=== PATIENT | male | born 1955 | race Caucasian/White ===

== ENCOUNTER → 2016-06-11 | Day surgery (SDC) | payer OTHER ==
--- NOTE | 2016-05-17 11:11 | HP ---
PREOPERATIVE HISTORY AND PHYSICAL: DATE OF SURGERY/ADMISSION: 06/11/16 PROCEDURE: Right index, middle and ring finger trigger finger releases. CHIEF COMPLAINT: Right index, middle and ring finger triggering. 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 He has had trouble with the middle finger for 3 years. He has not attempted any treatment at this time for this problem. He was offered a cortisone injection about 3 years ago, but declined. Now he is having pain in the other fingers and is interested in having something done about it. The middle finger locks regularly , but it is not terribly painful. He denies any numbness or tingling. After discussion and with evaluation by Dr. Oshea, the patient has agreed to proceed with surgical intervention at this time in the form of a right index finger, middle and ring finger trigger finger release. PAST MEDICAL HISTORY: 1. Hypercholesterolemia. 2. Hypertension. 3. GERD. 4. Anxiety. PAST SURGICAL HISTORY: 1. Vasectomy. 2. Oral surgery. CURRENT MEDICATIONS: 1. Aspirin 81 mg daily. 2. Atorvastatin calcium 20 mg daily. 3. Cetirizine HCL 10 mg daily. 4. Diphenhydramine/APAP 25/500 mg daily p.r.n. sleep. 5. Metoprolol tartrate 25 mg one-half tab p.r.n. episode of tachycardia. 6. Nasacort 55 mcg 1 spray each nostril q.h.s. p.r.n. 7. Omeprazole 10 mg daily. 8. Toprol-XL 25 mg daily. 9. Xanax 0.25 mg 1 tab up to 3 times a day p.r.n. anxiety. 10. Zyrtec 1 tab daily. ALLERGIES: CIPROFLOXACIN causes hives. FAMILY MEDICAL HISTORY: Noncontributory. 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 He smoke cigars 1 to 2 per year. He denies illicit drug use. He does admit to alcohol use on regular occasion usually daily. REVIEW OF SYSTEMS: General: Negative for fevers, chills, or night sweats. No known anesthesia problems. HEENT: Negative headache, lightheadedness or syncopal episodes. Integumentary: Negative for abrasions, lesions or open wounds. Cardiothoracic: Positive for hypertension. Negative for chest pain, palpitations or edema. Pulmonary: Negative for shortness of breath with exertion, chronic cough, or COPD. GI: Positive for GERD. Negative for nausea , vomiting, diarrhea, or constipation. : Positive for history of kidney stones. Negative for nocturia, urinary frequency, urgency, history of UTIs. Musculoskeletal: Positive for current complaint. Negative for chronic or intermittent back pain or history of fractures. Neurological: Positive for anxiety. Negative for paresthesias, numbness, history of seizure, stroke or epilepsy. Endocrine: Negative for diabetes or thyroid issues. Hematologic: Negative for easy bruising, anemia, excessive bleeding, or history of DVT. Infectious Disease: Negative for history of MRSA, hepatitis C, HIV. PHYSICAL EXAMINATION GENERAL: Well-developed, well-nourished 60-year-old male in no acute distress. VITAL SIGNS: Height 5 feet 6 inches, weight 233 pounds. Blood pressure 143/82 , pulse rate 67. HEENT: Normocephalic, atraumatic. Pupils are equal, round and reactive to light and accommodation. Extraocular movements are intact. NECK: Supple. No palpable lymph nodes. Throat is clear. PULMONARY: Lungs are clear to auscultation bilaterally. No wheezes, rales, or rhonchi. CARDIOTHORACIC: Regular rate and rhythm. S1, S2. No murmurs, rubs or gallops. No edema. ABDOMEN: Positive bowel sounds, soft, nontender. NEUROLOGICAL: Alert and oriented x3. Cranial nerves II through XII are intact. MUSCULOSKELETAL: On exam of his right hand, he has tenderness to palpation at the A1 luis of the middle, ring, and index fingers. There is triggering and locking in flexion of the middle finger. No locking of the other fingers. Neurovascular function is intact. He lacks full extension of his middle finger , but otherwise has normal range of motion. IMPRESSION: Trigger fingers of the right index, middle, and ring finger. PLAN: The patient is scheduled to undergo right index, middle, and ring finger trigger finger releases with Dr. Oshea on 06/11/16. He will return to the office 10 to 14 days postop for followup and suture removal. A prescription for tramadol was e-scribed to the patient's pharmacy for postoperative pain management. OKSANA PETERS [id number]/[facility] #: [id number] KAREN
[~2016-06-11] MED LIST: Buffered Lidocaine 1% SYR 3ML* 3 ML/SYR SYRINGE INTRADERM ONE; Buffered Lidocaine 1% SYR 3ML* 3 ML/SYR SYRINGE ONE; Labetalol IV* 5 MG/ML 20 ML VIAL ONE; Lidocaine 1% INJ* 10 MG/ML 30 ML SDV ONE; Midazolam* 1 MG/ML 2 ML VIAL (2 MG) ONE; fentaNYL* 50 MCG/ML 2 ML VIAL (100 MCG VIAL) ONE
[2016-06-11 08:33] VITALS: BP 117/77
--- NOTE | 2016-06-12 00:07 | OP ---
DATE OF OPERATION: 06/11/16 [facility] DATE OF : 53 SURGEON: Ana Oshea MD CHANGE AGENT: OKSANA Thomposn ANESTHESIOLOGIST: Keon Levine DO ANESTHESIA: Local MAC. PRE-OP DIAGNOSIS: Trigger fingers of the right index, long, and ring fingers. POST-OP DIAGNOSIS: Trigger fingers of the right index, long, and ring fingers. OPERATIVE PROCEDURE: Trigger finger release of his right index, middle, and long finger. ESTIMATED BLOOD LOSS: Zero. TOURNIQUET TIME: About 15 minutes. INDICATION OF PROCEDURE: Aden is a 60-year-old man with triggering and locking of his right index, long, and ring fingers. He presents for trigger finger release after failing conservative treatment. DESCRIPTION OF PROCEDURE: The patient was brought to the operating room, was given a sedation anesthetic and a local infiltration of a total of 12 cc of 1% plain lidocaine in the palm of his right hand. Skin of his right hand and forearm was prepped and draped in the usual sterile fashion. The hand and forearm were exsanguinated and the tourniquet elevated to 250 mmHg. A transverse incision was made, centered over the A1 pulleys of the index, middle , and long fingers of the right hand. We dissected bluntly subcutaneous tissue down to each A1 luis and each luis was incised longitudinally completely releasing the flexor tendons which have some mild tenosynovitis, but were otherwise in very good condition. The wound was irrigated and the skin edges reapproximated with 4-0 nylon suture. The wound was dressed with Xeroform, 4x4 , Webril, and an Nikita wrap. The patient tolerated the procedure well and was brought to the recovery room in good condition. [id number]/[facility] #: [id number] MTDD
== END | disposition home or self-care (01) ==
LOC: OREAST 06:35
PROVIDERS: ATTEND Orthopaedic Surgery
DX: M65.321 Trigger finger, right index finger (principal); M65.331 Trigger finger, right middle finger; M65.341 Trigger finger, right ring finger; E78.00 Pure hypercholesterolemia, unspecified; I10 Essential (primary) hypertension; K21.9 Gastro-esophageal reflux disease without esophagitis; F41.9 Anxiety disorder, unspecified; Z79.82 Long term (current) use of aspirin
CPT/HCPCS: J2250; J3010

== ENCOUNTER 2017-06-16 17:32 | Emergency (ER) | payer OTHER ==
[2017-06-16] MEDS ORDERED: NS 0.9% 1000 ML* 1,000 ML IV ONE (18:39)
[2017-06-16 19:11] LABS: ABS Basophils 0.1 10^3/ul (0-0.2); ABS Eosinophils 0.2 10^3/ul (0-0.6); ABS Lymphocytes 1.4 10^3/ul (1.0-4.8); ABS Monocytes 0.6 10^3/ul (0-0.8); ABS Neutrophils 3.6 10^3/ul (1.5-7.7); ABS Nucleated RBC 0 10^3/ul; Eosinophil % 2.9 % (0-6); Hematocrit 42 % (42-52); Hemoglobin 14.3 g/dl (14.0-18.0); Lymphocyte % 23.8 % (25-47); Mean Corpuscular HGB Conc 34 g/dl (31-36); Mean Corpuscular Hemoglobin 32 pg (27-31); Mean Corpuscular Volume 94 fL (80-94); Mean Platelet Volume 8 um3 (7.4-10.4); Nucleated Red Blood Cells % 0; Platelet Count 193 10^3/ul (150-450); Red Blood Count 4.46 10^6/ul (4.0-5.4); Red Cell Distribution Width 14 % (10.5-15); White Blood Count 5.7 10^3/ul (3.5-10.8)
[2017-06-16 19:16] LABS: INR 0.94 (0.77-1.02)
[2017-06-16 19:25] LABS: EGFR Non-African American 80.3 (>60)
[2017-06-16] MEDS ORDERED: Metoprolol Tartrate TAB* 25 MG PO ONE (20:45)
[2017-06-16 20:47] VITALS: BP 132/73
--- NOTE | 2017-06-16 21:23 | ED ---
Alireza London Julia, scribed for Roberto Murphy MD on 06/16/17 at 1806 . Palpitations / Dysrhythmia - HPI Summary HPI Summary: This patient is a 61 year old M BIBA to [facility] with a chief complaint of intermittent bouts of tachycardia since 15:30. The patient rates the pain 0/ 10 in severity. Symptoms aggravated by alcohol and dehydration. Symptoms alleviated by slow controlled breathing. Patient reports, cold hands and feet during bouts, being a little tired, dehydrated, and diarrhea. Patient denies fever. Patient states pedal swelling is normal for him. Patient was given 324mg of ASA in ambulance. Patient has been taking Augmentin recently. Patient has history of HTN, GERN and atrial tachycardia (past 30 years). - History of Current Complaint Chief Complaint: EDDysrhythmPalp Time Seen by Provider: 06/16/17 17:57 Hx Obtained From: Patient Onset/Duration: Sudden Onset Timing: Intermittent Episodes Lasting: Aggravating: Other - alcohol, dehydration Alleviating: Other - slow breathing - Allergy/Home Medications Allergies/Adverse Reactions: Allergies Allergy/AdvReac Type Severity Reaction Status Date / Time Levofloxacin Allergy Rash Verified 06/11/16 06:53 PMH/Surg Hx/FS Hx/Imm Hx Endocrine/Hematology History: Denies: Hx Diabetes Cardiovascular History: Reports: Hx Hypercholesterolemia, Hx Hypertension - ON DAILY MEDS Comment Only: Other Cardiovascular Problems/Disorders - ATRIAL TACHYCARDIA Respiratory History: Reports: Hx Pneumonia, Hx Seasonal Allergies Denies: Hx Sleep Apnea Comment Only: Other Respiratory Problems/Disorders - HX PNEUMONIA X 7 YRS AGO GI History: Reports: Hx Gastroesophageal Reflux Disease - ON DAILY MEDS, Hx Irritable Bowel - Hx OF, OCCASSIONAL Sx, Other GI Disorders - umbilical hernia SURGERY 2009 History: Reports: Hx Kidney Stones - Hx OF, 2 PASTED ON OWN, STATES BY XRAY HAS ONE IN RIGT KIDNEY, NO PROBLEMS Denies: Hx Renal Disease Musculoskeletal History: Reports: Hx Arthritis, Hx Back Problems, Hx Gout Sensory History: Reports: Hx Contacts or Glasses - GLASSES Opthamlomology History: Reports: Hx Contacts or Glasses - GLASSES Psychiatric History: Denies: Hx Anxiety - Surgical History Surgery Procedure, Year, and Place: [place] [facility] [place] [facility] [place] [facility] [place]x Anesthesia Reactions: No - Immunization History Date of Influenza Vaccine: 04/2017 Immunizations Up to Date: Yes Infectious Disease History: No Infectious Disease History: Denies: Traveled Outside the [place] in Last 30 Days - Family History Known Family History: Positive: Cardiac Disease - CAD - paternal - Social History Alcohol Use: Daily Alcohol Amount: 2 drinks Hx Substance Use: No Substance Use Type: Reports: None Hx Tobacco Use: Yes Smoking Status (MU): Current Some Day Smoker Have You Smoked in the Last Year: No Review of Systems Positive: Fatigue, Other - dehydrated Positive: Palpitations Positive: Diarrhea Positive: Other - cold extremities All Other Systems Reviewed And Are Negative: Yes Physical Exam - Summary Physical Exam Summary: Appearance: The patient is well-nourished in no acute distress and in no acute pain. Patient appears red in color, Skin: The skin is warm and dry and skin color reflects adequate perfusion. HEENT: The head is normocephalic and atraumatic. The pupils are equal and reactive. The conjunctivae are clear and without drainage. Nares are patent and without drainage. Mouth reveals moist mucous membranes and the throat is without erythema and exudate. The external ears are intact. The ear canals are patent and without drainage. The tympanic membranes are intact. Neck: the neck is supple with full range of motion and non-tender. There are no carotid bruits. There is no neck vein distension. Respiratory: Chest is non-tender. Lungs are clear to auscultation and breath sounds are symmetrical and equal. Cardiovascular: Heart is regular rate and rhythm. There is no murmur or rub auscultated. There is no peripheral edema and pulses are symmetrical and equal. Abdomen: The abdomen is soft and non-tender. There are normal bowel sounds heard in all four quadrants and there is no organomegaly palpated. Musculoskeletal: There is no back tenderness noted. Extremities are non-tender with full range of motion. There is good capillary refill. There is pitting edema bilaterally no calf tenderness elicited. Neurological: Patient is alert and oriented to person, place and time. The patient has symmetrical motor strength in all four extremities. Cranial nerves are grossly intact. Deep tendon reflexes are symmetrical and equal in all four extremities. Psychiatric: The patient has an appropriate affect and does not exhibit any anxiety or depression. Triage Information Reviewed: Yes Vital Signs On Initial Exam: Initial Vitals Temp Pulse Resp BP Pulse Ox 99.2 F 97 17 141/78 91 06/16/17 17:39 06/16/17 17:39 06/16/17 17:39 06/16/17 17:39 06/16/17 17:39 Vital Signs Reviewed: Yes - Bradly Coma Scale Coma Scale Total: 15 Diagnostics - Vital Signs Vital Signs Temp Pulse Resp BP Pulse Ox 06/16/17 17:39 99.2 F 97 17 141/78 91 - Laboratory Lab Results: Lab Results 06/16/17 06/16/17 06/16/17 Range/Units 19:00 19:00 19:00 WBC 5.7 (3.5-10.8) 10^3/ul RBC 4.46 (4.0-5.4) 10^6/ul Hgb 14.3 (14.0-18.0) g/dl Hct 42 (42-52) % MCV 94 (80-94) fL MCH 32 H (27-31) pg MCHC 34 (31-36) g/dl RDW 14 (10.5-15) % Plt Count 193 (150-450) 10^3/ul MPV 8 (7.4-10.4) um3 Neut % (Auto) 62.6 (38-83) % Lymph % (Auto) 23.8 L (25-47) % Gaston % (Auto) 9.7 H (1-9) % Eos % (Auto) 2.9 (0-6) % Baso % (Auto) 1.0 (0-2) % Absolute Neuts (auto) 3.6 (1.5-7.7) 10^3/ul Absolute Lymphs (auto) 1.4 (1.0-4.8) 10^3/ul Absolute Monos (auto) 0.6 (0-0.8) 10^3/ul Absolute Eos (auto) 0.2 (0-0.6) 10^3/ul Absolute Basos (auto) 0.1 (0-0.2) 10^3/ul Absolute Nucleated RBC 0 10^3/ul Nucleated RBC % 0 INR (Anticoag Therapy) 0.94 (0.77-1.02) Sodium 136 (133-145) mmol/L Potassium 4.7 (3.5-5.0) mmol/L Chloride 104 (101-111) mmol/L Carbon Dioxide 26 (22-32) mmol/L Anion Gap 6 (2-11) mmol/L BUN 20 (6-24) mg/dL Creatinine 0.95 (0.67-1.17) mg/dL Est GFR ( Amer) 103.3 (>60) Est GFR (Non-Af Amer) 80.3 (>60) BUN/Creatinine Ratio 21.1 H (8-20) Glucose 133 H (70-100) mg/dL Lactic Acid (0.5-2.0) mmol/L Calcium 9.1 (8.6-10.3) mg/dL Magnesium 2.0 (1.9-2.7) mg/dL Total Bilirubin 0.40 (0.2-1.0) mg/dL AST 27 (13-39) U/L ALT 35 (7-52) U/L Alkaline Phosphatase 66 (34-104) U/L Troponin I 0.01 (<0.04) ng/mL Total Protein 7.2 (6.4-8.9) g/dL Albumin 4.1 (3.2-5.2) g/dL Globulin 3.1 (2-4) g/dL Albumin/Globulin Ratio 1.3 (1-3) TSH 0.96 (0.34-5.60) mcIU/mL 06/16/17 Range/Units 19:00 WBC (3.5-10.8) 10^3/ul RBC (4.0-5.4) 10^6/ul Hgb (14.0-18.0) g/dl Hct (42-52) % MCV (80-94) fL MCH (27-31) pg MCHC (31-36) g/dl RDW (10.5-15) % Plt Count (150-450) 10^3/ul MPV (7.4-10.4) um3 Neut % (Auto) (38-83) % Lymph % (Auto) (25-47) % Gaston % (Auto) (1-9) % Eos % (Auto) (0-6) % Baso % (Auto) (0-2) % Absolute Neuts (auto) (1.5-7.7) 10^3/ul Absolute Lymphs (auto) (1.0-4.8) 10^3/ul Absolute Monos (auto) (0-0.8) 10^3/ul Absolute Eos (auto) (0-0.6) 10^3/ul Absolute Basos (auto) (0-0.2) 10^3/ul Absolute Nucleated RBC 10^3/ul Nucleated RBC % INR (Anticoag Therapy) (0.77-1.02) Sodium (133-145) mmol/L Potassium (3.5-5.0) mmol/L Chloride (101-111) mmol/L Carbon Dioxide (22-32) mmol/L Anion Gap (2-11) mmol/L BUN (6-24) mg/dL Creatinine (0.67-1.17) mg/dL Est GFR ( Amer) (>60) Est GFR (Non-Af Amer) (>60) BUN/Creatinine Ratio (8-20) Glucose (70-100) mg/dL Lactic Acid 1.4 (0.5-2.0) mmol/L Calcium (8.6-10.3) mg/dL Magnesium (1.9-2.7) mg/dL Total Bilirubin (0.2-1.0) mg/dL AST (13-39) U/L ALT (7-52) U/L Alkaline Phosphatase (34-104) U/L Troponin I (<0.04) ng/mL Total Protein (6.4-8.9) g/dL Albumin (3.2-5.2) g/dL Globulin (2-4) g/dL Albumin/Globulin Ratio (1-3) TSH (0.34-5.60) mcIU/mL Result Diagrams: 06/16/17 19:00 06/16/17 19:00 Lab Statement: Any lab studies that have been ordered have been reviewed, and results considered in the medical decision making process. - EKG 19:03 Cardiac Rate: NL EKG Rhythm: Sinus Rhythm - at 90 BPM EKG Interpretation: L axis deviation, possible old septal infarct Course/Dx - Course Course Of Treatment: Mr. Lange presented saying he has been feeling himself go into atrial tachycardia intermittently for several days but today he was unable to get himself out of it. He did feel better on arrival here. He was observed on the monitor without ectopy and his labs were fine. He will F/U if problems continue. - Diagnoses Provider Diagnoses: Palpitations Discharge - Discharge Plan Condition: Stable Disposition: HOME Patient Education Materials: Palpitations (ED) Referrals: Duong Perez MD [Primary Care Provider] - Additional Instructions: Patient is instructed to follow up with Primary Care Provider, Dr. Perez RETURN TO THE EMERGENCY DEPARTMENT FOR CHANGING OR WORSENING SYMPTOMS. The documentation as recorded by the Alireza scales Julia accurately reflects the service I personally performed and the decisions made by me, Roberto Murpyh MD.
== END 2017-06-16 21:02 | disposition home or self-care (01) ==
LOC: ED 17:32
DX: R00.2 Palpitations (principal); F17.200 Nicotine dependence, unspecified, uncomplicated; Z88.3 Allergy status to other anti-infective agents
CPT/HCPCS: 36415; 80053; 83605; 83735; 84443; 84484; 85025; 85610; 93005; 99283